=== PATIENT | male | born 1965 | race Caucasian/White ===

== ENCOUNTER 2024-11-26 06:51 | Day surgery (SDC) | payer OTHER ==
[~2024-11-26] VITALS: Ht 165.1 cm; Wt 75.0 kg
[2024-11-26] MEDS ORDERED: BENZOCAINE 20% 50 MCG/SPRAY 57 GM TP ONE (06:52)
[2024-11-26] MEDS ORDERED: LIDOCAINE 4% 50 ML SOLUTION TP ONE (06:52)
[2024-11-26] MEDS ORDERED: LIDOCAINE 2% 11 ML JELLY TP ONE (06:52)
[2024-11-26 07:55] LABS: GLUCOMETER DEV NAME(LOC) SDS.; GLUCOSE,POINT OF CARE 123 MG/DL (70-110)
[2024-11-26] MEDS: SODIUM CHLORIDE 0.9% 1,000 ML IV ONE (08:19)
[2024-11-26] MEDS ORDERED: MIDAZOLAM HCL 2 MG/2 ML VIAL ONE (08:28)
[2024-11-26] MEDS ORDERED: FentaNYL CITRATE PF 100 MCG/2 ML VIAL ONE (08:29)
[2024-11-26] MEDS ORDERED: TAMS0.4C94 PO (08:31)
[2024-11-26] MEDS ORDERED: GABA-1181 PO (08:31)
[2024-11-26] MEDS ORDERED: CEFU250T87 PO (08:31)
[2024-11-26] MEDS ORDERED: ATOR40TA28 PO (08:31)
[2024-11-26] MEDS ORDERED: FOLI-130 PO (08:31)
[2024-11-26] MEDS ORDERED: AMLO5TAB66 PO (08:31)
[2024-11-26] MEDS ORDERED: PRED-729 PO (08:31)
[2024-11-26 09:56] VITALS: PULSE 85; RESP 18; O2SAT 99
[2024-11-26] MEDS ORDERED: MethylPREDNISolone SOD SUCC 125 MG/2 ML VIAL ONE (10:20)
[2024-11-26] MEDS: MethylPREDNISolone SOD SUCC 125 MG/2 ML VIAL IVP ONE (10:26)
== END 2024-11-26 12:20 | disposition home or self-care (01) ==
LOC: SURGERY 06:51
PROVIDERS: ATTEND Internal Medicine Critical Care Medicine
DX: R05.3 Chronic cough (principal); R04.2 Hemoptysis; J98.09 Other diseases of bronchus, not elsewhere classified; J84.10 Pulmonary fibrosis, unspecified; J98.8 Other specified respiratory disorders; Z79.899 Other long term (current) drug therapy
CPT/HCPCS: 31623; 82962; 87206; 87101; 87220; 87070; 88108; 31624; 71045; 87015; J3010; J2250; J2919; Z7610